=== PATIENT | female | born 1995 | race Caucasian/White ===

== ENCOUNTER → 2019-05-29 | Outpatient (CLI) | payer BC ==
--- NOTE | 2019-05-29 15:07 | FL ---
EXAMINATION TYPE: FL hysterosalpingography DATE OF EXAM: 05/29/2019 HISTORY: Infertility. Last menstrual period began 05/21/2019 TECHNIQUE/FINDINGS: Patient was brought to the fluoroscopic suite in outpatient radiology. The exami nation was explained in detail to the patient. Preprocedural timeout was performed. 35 seconds of flu oroscopy was utilized with 7 fluoroscopic images saved. Patient was draped in typical sterile technique. The patient was consented occasions with Betadine. A 5-Japanese catheter was inserted into the cervix and approximately 1.5 cc of air was insufflated into the balloon. A speculum was then removed and under fluoroscopic guidance 12 cc of Isovue-370 contras t was inserted into the catheter within the uterine cavity. After the administration of 12 cc of Isovue-370 into the uterus, spill of contrast was seen from the Fallopian tubes into the pelvis bilaterally. Patient is noted to have a prior left oophorectomy martinez gregg. The uterus demonstrates a normal shape and contour other than linear defect near the left is min us likely from prior surgical intervention. Linear defect in the fundus does resolve after instillati on of contrast and is likely attributable to the catheter and adjacent area as another small air bubb le is seen. Myometrial scarring is another possibility. Uterus appears anteverted. IMPRESSION: 1. Patency of the bilateral fallopian tubes despite the known left oophorectomy. 2. Linear defect in the myometrium appears to resolve on later images and is likely artifactual relat ed to instillation of air, however linear small fundal myometrial scar is an alternate possibility.
== END | disposition home or self-care (01) ==
LOC: RADUSWWP 13:11
PROVIDERS: ATTEND Obstetrics & Gynecology
DX: N80.9 Endometriosis, unspecified (principal); N97.9 Female infertility, unspecified; Z90.721 Acquired absence of ovaries, unilateral
CPT/HCPCS: 58340; 74740; Q9967

== ENCOUNTER 2019-06-22 12:52 | Emergency (ER) | payer BC, OTHER ==
[2019-06-22 13:01] VITALS: BP 119/76; PULSE 78; RESP 18; TEMP 97.8
--- NOTE | 2019-06-22 13:38 | ED ---
General Adult HPI - General Chief complaint: Animal Bite Stated complaint: [facility]-cat bite Time Seen by Provider: 06/22/19 13:01 Source: patient, RN notes reviewed Mode of arrival: ambulatory Limitations: no limitations - History of Present Illness Initial comments: 24-year-old female without any significant past medical history presents to the emergency department for a chief complaint of cat bite. Patient was bitten by a cat in the right thumb yesterday around 4:00 PM. States that she noticed some streaking up her arm. Patient is currently on Augmentin from a dog bite less than 10 days ago. Patient denies fevers or chills. Denies nausea or vomiting. States tetanus is up-to-date.Patient has no other complaints at this time including shortness of breath, chest pain, abdominal pain, nausea or vomiting, headache, or visual changes. - Related Data Home Medications Medication Instructions Recorded Confirmed Amoxic-Pot Clav 500-125 mg 1 tab PO TID 06/22/19 06/22/19 [Augmentin 500-125 mg] Ibuprofen 800 mg PO TID PRN 06/22/19 06/22/19 Previous Rx's Medication Instructions Recorded Amoxicillin/Potassium Clav 1 tab PO Q12HR #20 tab 06/22/19 [Augmentin 875-125 Tablet] Allergies Allergy/AdvReac Type Severity Reaction Status Date / Time No Known Allergies Allergy Verified 06/22/19 13:38 Review of Systems ROS Statement: Those systems with pertinent positive or pertinent negative responses have been documented in the HPI. ROS Other: All systems not noted in ROS Statement are negative. Past Medical History Past Medical History: No Reported History History of Any Multi-Drug Resistant Organisms: None Reported Additional Past Surgical History / Comment(s): Lap Past Psychological History: No Psychological Hx Reported Smoking Status: Never smoker Past Alcohol Use History: Occasional Past Drug Use History: Marijuana General Exam Limitations: no limitations General appearance: alert, in no apparent distress Head exam: Present: atraumatic, normocephalic, normal inspection Eye exam: Present: normal appearance, PERRL, EOMI. Absent: scleral icterus, conjunctival injection, periorbital swelling ENT exam: Present: normal exam, mucous membranes moist Neck exam: Present: normal inspection, full ROM. Absent: tenderness, meningismus, lymphadenopathy Respiratory exam: Present: normal lung sounds bilaterally. Absent: respiratory distress, wheezes, rales, rhonchi, stridor Cardiovascular Exam: Present: regular rate, normal rhythm, normal heart sounds. Absent: systolic murmur, diastolic murmur, rubs, gallop, clicks Extremities exam: Present: full ROM (Full range motion of all digits in the right hand including the right thumb), normal capillary refill (Biliary refill less than 2 seconds, radial pulse 2+ and right upper extremity.), other (She has some mild erythema noted over the thenar eminence. This is erythematous without purulent drainage or palpable abscess. There is some light red streaking up to about the mid forearm). Absent: tenderness (No significant tenderness noted), pedal edema, joint swelling, calf tenderness Course Vital Signs 06/22/19 12:59 Temperature 97.8 F Pulse Rate 78 Respiratory 18 Rate Blood Pressure 119/76 O2 Sat by Pulse 99 Oximetry Medical Decision Making - Medical Decision Making HPI as documented physical exam reveals some erythema along the bite padreep of the thenar eminence. This was cleaned out thoroughly. There is also some mild erythema streaking up to about the mid distal forearm with lymphangitis. X-ray was obtained to rule out foreign body which shows a normal three-view. Discussed case with Dr. Antonio. At this time he feels patient should continue Augmentin and continue to monitor. Erythema was marked off with a pen. Recommended that if there is a few H increase past this pardeep or if she has fevers to return to the emergency department for IV antibiotics. Discussed strict return parameters. Patient does agree with this. Cat was not immunized for rabies but can be monitored for 10 days as CDC recommends this over rabies vaccinations. patient is agreeable to this. Animal control will be contacted through our animal bite form as well as patient's work. Disposition Clinical Impression: Cat bite Disposition: HOME SELF-CARE Condition: Good Instructions (If sedation given, give patient instructions): Animal Bite (ED) Additional Instructions: Please take Augmentin as directed. Please monitor for redness extending past black line and return immediately if this occurs for IV antibiotics. Return if you have any other worsening symptoms such as fevers. Otherwise follow-up with primary care in 1-2 days. Prescriptions: Amoxicillin/Potassium Clav [Augmentin 875-125 Tablet] 1 tab PO Q12HR #20 tab Is patient prescribed a controlled substance at d/c from ED?: No Referrals: Felicitas Mclean MD [REFERRING] - 1-2 days Time of Disposition: 13:57
--- NOTE | 2019-06-22 13:53 | XR ---
EXAMINATION TYPE: XR hand complete RT DATE OF EXAM: 06/22/2019 COMPARISON: None HISTORY: Cat bite, possible foreign body TECHNIQUE: 3 view right hand FINDINGS: No acute fractures or dislocations are evident. No radiopaque foreign bodies are evident. S oft tissues appear normal. Tip of the middle finger is collimated out of the field of view on the lat eral projection but appears unremarkable on additional views. IMPRESSION: 1. Normal 3 view right hand.
== END 2019-06-22 14:35 | disposition home or self-care (01) ==
LOC: EC 12:52
DX: S61.051A Open bite of right thumb without damage to nail, initial encounter (principal); W55.01XA Bitten by cat, initial encounter
CPT/HCPCS: 99283

== ENCOUNTER 2020-02-16 09:09 | Inpatient (IN) | payer BC, OTHER ==
[2020-02-16] MEDS ORDERED: METHYLERGONOVINE 0.2 MG/ML 1 ML AMP IM PRN (10:14)
[2020-02-16] MEDS ORDERED: OXYTOCIN 10 UNIT/ML 1 ML VIAL IM PRN (10:14)
[2020-02-16] MEDS ORDERED: TERBUTALINE 1 MG/ML VIAL SQ PRN (10:14)
[2020-02-16] MEDS ORDERED: AMPICILLIN 2,000 MG in SODIUM CHLORIDE 0.9% 100 ML IVPB STA (10:14)
[2020-02-16] MEDS ORDERED: CARBOPROST TROMETHAMINE 250 MCG/ML 1 ML AMP IM PRN (10:14)
[2020-02-16] MEDS ORDERED: LIDOCAINE 0.5% (PF) 5 MG/ML (50 ML SDV) SQ PRN (10:14)
[2020-02-16] MEDS ORDERED: LACTATED RINGERS 1,000 ML IV SCH (10:15)
--- NOTE | 2020-02-16 10:18 | US ---
EXAMINATION TYPE: US OB >= 14 wk fetus DATE OF EXAM: 02/16/2020 COMPARISON: None CLINICAL HISTORY: vaginal bleeding TECHNIQUE: GESTATIONAL AGE / DATING Physician Established: (35 weeks/0 days) EDC: 03/22/20 Dates by LMP: unknown Dates by First Scan: not available Dates by Current Scan: ( 35 weeks/0 days) EDC: 03/22/20 Beta HCG (if available): Not available at this time SURVEY IUP: Single PLACENTA: Anterior PREVIA: No Previa MYRNA: cm CERVICAL LENGTH (transabdominal: norm > 3.0cm):not measured per NENA Cunningham BIOMETRY PRESENTATION: vertex BPD: 8.6 cm 34 weeks / 4 days HC: 11.2 cm 35 weeks / 2 days AC: 11.5 cm 35 weeks / 3 days FL: 6.6 cm 34 weeks / 2 days ESTIMATED WEIGHT IN GRAMS: 2555 grams ESTIMATED WEIGHT IN LBS/OZ: 5 lbs. 10 oz. WEIGHT PERCENTAGE BASED ON ESTABLISHED DATES: 78% HC/AC: 1.0 FL/AC: 21 HEART RATE: bpm RHYTHM: 130 IMPRESSION: Single viable intrauterine
--- NOTE | 2020-02-16 10:25 | P.HPOB ---
History of Present Illness H&P Date: 02/16/20 Chief Complaint: Contractions, bleeding This is a 24-year-old female 2 para 0 with an estimated date of confinement of 03/22/2020, estimated gestational age of 35-0/7 weeks, who presents to labor and delivery with complaints of abdominal pain and some bleeding that began this morning. She has been feeling cramping and pain since Wednesday but became more regular last night. Her course had been uncomplicated up until now. She did have some skin issues and was seen by dermatology that gave her a cream for tinea versicolor. Ultrasound performed in triage did show an estimated weight of 5 lbs. 10 oz. and vertex presentation. labs: GC/chlamydia/Trichomonas-negative Hepatitis B surface antigen-negative RPR-nonreactive Rubella-immune Blood type-A+ Antibody screen-negative Hemoglobin-11.3 Toxoplasma screen-negative Random glucose-78 1 hour Glucola-98 Anatomy scan-normal anatomy Obstetrical history: . History of 1 miscarriage. Gynecologic history: No history of sexual transmitted diseases Social history: She is single. She works at a veterinary clinic. Review of Systems Constitutional: Denies chills, Denies fever Eyes: denies blurred vision, denies pain Ears, nose, mouth and throat: Denies headache, Denies sore throat Cardiovascular: Denies chest pain, Denies shortness of breath Respiratory: Denies cough Gastrointestinal: Reports abdominal pain Genitourinary: Reports pelvic pain, Reports Musculoskeletal: Reports low back pain Neurological: Denies numbness, Denies weakness Psychiatric: Denies anxiety, Denies depression Past Medical History Additional Past Medical History / Comment(s): Endometriosis History of Any Multi-Drug Resistant Organisms: None Reported Additional Past Surgical History / Comment(s): Laparoscopy with left oophorectomy, left ureteral lysis, ablation of peritoneal lesions and endometriosis with incidental uterine perforation-03/29/2019 Past Psychological History: No Psychological Hx Reported Smoking Status: Never smoker Past Alcohol Use History: None Reported Past Drug Use History: Marijuana (Quit with ) - Past Family History Father Family Medical History: Hypertension Medications and Allergies Home Medications Medication Instructions Recorded Confirmed Type Ciclopirox Olamine [Ciclopirox 1 applic TOPICAL 02/16/20 History 0.77% Topical Susp.] Ferrous Sulfate [Iron] 325 mg PO DAILY 02/16/20 02/16/20 History Pnv No.95/Ferrous Fum/Folic AC 1 each PO DAILY 02/16/20 02/16/20 History [ Multivitamin Tablet] Allergies Allergy/AdvReac Type Severity Reaction Status Date / Time No Known Allergies Allergy Verified 06/22/19 13:38 Exam Osteopathic Statement: *. No significant issues noted on an osteopathic structural exam other than those noted in the History and Physical/Consult. Vital Signs Temp Pulse Resp BP 02/16/20 09:37 97.8 F 68 16 138/70 Intake and Output 02/15/20 02/16/20 02/16/20 22:59 06:59 14:59 Other: Weight 79.379 kg HEENT: Within normal limits Heart: Regular rate and rhythm Lungs: Clear to auscultation bilaterally Abdomen: Cervix: 8-9 cm with bulging bag/100% effaced/-1 station heart tones: Reactive Contractions: Every 3 minutes Extremities: Negative Homans Assessment and Plan (1) 35 weeks gestation of Current Visit: Yes Status: Acute Code(s): Z3A.35 - 35 WEEKS GESTATION OF SNOMED Code(s): 88391504 (2) labor in third trimester with delivery Current Visit: Yes Status: Acute Code(s): O60.14X0 - LABOR THIRD TRI W DELIVERY THIRD TRI, UNSP SNOMED Code(s): 62169812317985273 Plan: Admission for eminent labor. Antibiotic prophylaxis secondary to unknown group B streptococcus. Patient is advised that baby will need to go to level I nursery after delivery for observation due to immaturity.
[2020-02-16 10:33] LABS: Basophils % (A) 0 %; Eosinophils # (A) 0.3 k/uL (0-0.7); Eosinophils % (A) 2 %; HCT 34.6 % (34.0-46.0); HGB 11.2 gm/dL (11.4-16.0); Lymphocytes # (A) 2.2 k/uL (1.0-4.8); Lymphocytes % (A) 15 %; MCH 30.9 pg (25.0-35.0); MCHC 32.3 g/dL (31.0-37.0); MCV 95.9 fL (80.0-100.0); Mean Platelet Volume 7.2; Monocytes # (A) 0.6 k/uL (0-1.0); Monocytes % (A) 4 %; Neutrophils # (A) 11.6 k/uL (1.3-7.7); Neutrophils % (A) 78 %; Platelet Count 329 k/uL (150-450); RBC 3.61 m/uL (3.80-5.40); RDW 13.8 % (11.5-15.5); WBC 14.9 k/uL (3.8-10.6)
[2020-02-16] MEDS ORDERED: IBUPROFEN 600 MG TAB PO PRN (11:14)
[2020-02-16] MEDS ORDERED: OXYTOCIN 20 UNITS/1000 ML NS 1,000 ML IV SCH (11:14)
[2020-02-16] MEDS ORDERED: ACETAMINOPHEN TAB 325 MG TAB PO PRN (11:14)
[2020-02-16] MEDS ORDERED: WITCH HAZEL 1 EACH MED..PAD TOPICAL PRN (11:14)
[2020-02-16] MEDS ORDERED: diphenhydrAMINE 50 MG CAP PO PRN (11:14)
[2020-02-16] MEDS ORDERED: SIMETHICONE 80 MG CHEWABLE PO PRN (11:14)
[2020-02-16] MEDS ORDERED: ZOLPIDEM 5 MG TAB PO PRN (11:14)
[2020-02-16] MEDS ORDERED: LANOLIN CREAM 5 GM TUBE TOPICAL PRN (11:14)
[2020-02-16] MEDS ORDERED: HYDROCORTISONE 2.5% RECTAL CREAM 30 GM TUBE RECTAL PRN (11:14)
[2020-02-16] MEDS ORDERED: diphenhydrAMINE 50 MG/ML 1 ML VIAL IVP PRN ×2 (11:14)
[2020-02-16] MEDS ORDERED: BENZOCAINE/MENTHOL SPRAY 1 GM/SPRAY AEROSOL TOPICAL PRN (11:14)
[2020-02-16] MEDS ORDERED: diphenhydrAMINE 25 MG CAP PO PRN (11:14)
--- NOTE | 2020-02-16 13:17 | P.PROBDLV ---
Vaginal Delivery Note - . Vaginal Delivery Note: The patient progressed to complete dilation after artificial rupture membranes with clear fluid noted. She pushed for a few pushes and then infant's head came to a crown and then delivered across the perineum followed by the remainder of the body. Infant was placed on mother's abdomen and nose and mouth were bulb suctioned. Cord was clamped and cut and was taken to warmer for evaluation by nursing staff. A viable female was noted with scores of 8 at 1 minute and 9 at 5 minutes and infant weight of 4 lbs. 15 oz. Placenta delivered shortly thereafter, intact, with a three-vessel cord. Uterus contracted well after oxytocin was given and uterine massage was carried out. Inspection of the perineum revealed mild bilateral periurethral abrasions but no active bleeding noted. Estimated blood loss is approximately 100 mL's. Mother is in stable condition. is in stable condition but being transported to level I nursery due to prematurity.
--- NOTE | 2020-02-16 13:18 | P.MSEPDOC ---
Presenting Problems - Arrival Data Date of Arrival on Unit: 02/16/20 Time of Arrival on Unit: 10:06 Mode of Transport: Portable - Complaint OB-Reason for Admission/Chief Complaint: Vaginal Bleeding, Other Comment: lower abd pain Medical History - Information : 2 Para: 0 Term: 0 : 0 Abortions: Spontaneous or Elective: 0 Number of Living Children: 0 - Gestational Age Gestational Age by MARIA ESTHER (wks/days): 35 Weeks and 0 Days Review of Systems - Review of Systems Constitutional: No problems Breast: No problems ENT: No problems Cardiovascular: No problems Respiratory: No problems Gastrointestinal: No problems Genitourinary: No problems Musculoskeletal: No problems Neurological: No problems Skin: No problems Vital Signs - Temperature Temperature: 97.8 F Temperature Source: Temporal Artery Scan - Pulse Right Radial Pulse Rate: 68 Pulse Assessment Method: Automatic Cuff - Respirations Respiratory Rate: 16 Oxygen Delivery Method: Room Air - Blood Pressure Right Arm Blood Pressure: 138/70 Blood Pressure Mean: 92 Blood Pressure Source: Automatic Cuff Medical Screen Scoring (Pre) - Cervical Exam Dilation: 8-10 cm = 3 Effacement: More than 50% = 2 Membranes: Intact - Uterine Contractions Frequency: > 5 minutes apart = 1 - Maternal Vital Signs Maternal Temperature: N/A Maternal Blood Pressure: N/A Signs of Preeclampsia: N/A Maternal Respirations: N/A - Maternal Trauma Maternal Trauma: N/A - Assessment - Baby A Baseline FHR: 135 Heart Rate - NICHD Category: Category I (Normal) = 0 NST: Reactive Position: N/A Station: N/A - Total Score - Baby A Total Score - Baby A: 6 - Total Score - Baby B Total Score - Baby B: 6 - Total Score - Baby C Total Score - Baby C: 6 - Level of Risk - Baby A Level of Risk - Baby A: Medium (6-9) - Level of Risk - Baby B Level of Risk - Baby B: Medium (6-9) - Level of Risk - Baby C Level of Risk - Baby C: Medium (6-9) Physician Notification (Pre) - Physician Notified Physician Notified Date: 02/16/20 Physician Notified Time: 09:30 New Order Received: Yes - Notification Comment Comment: u/s at bedside and assess in triage/ adm for ob delivery. 8-[address] hewitt. adm for ob delivery Disposition - Disposition OB Disposition: Admit I agree with the RN Medical Screening Exam: Yes Risk & Benefit of care provided described in d/c instruction: Yes Diagnosis: LABOR THIRD TRI W DELIVERY THIRD TRI, UNSP
[2020-02-16] MEDS ORDERED: AMPICILLIN 1,000 MG in SODIUM CHLORIDE 0.9% 50 ML IVPB SCH (14:14)
[2020-02-16] MEDS: SENNOSIDES-DOCUSATE SODIUM 1 EACH TAB PO SCH (19:58)
[2020-02-17 06:01] LABS: Basophils % (A) 0 %; Eosinophils # (A) 0.1 k/uL (0-0.7); Eosinophils % (A) 1 %; HCT 34.4 % (34.0-46.0); HGB 11.1 gm/dL (11.4-16.0); Lymphocytes # (A) 2.7 k/uL (1.0-4.8); Lymphocytes % (A) 19 %; MCH 31.3 pg (25.0-35.0); MCHC 32.2 g/dL (31.0-37.0); MCV 97.3 fL (80.0-100.0); Mean Platelet Volume 7.8; Monocytes # (A) 0.7 k/uL (0-1.0); Monocytes % (A) 5 %; Neutrophils # (A) 10.6 k/uL (1.3-7.7); Neutrophils % (A) 74 %; Platelet Count 280 k/uL (150-450); RBC 3.54 m/uL (3.80-5.40); RDW 13.9 % (11.5-15.5); WBC 14.3 k/uL (3.8-10.6)
[2020-02-17] MEDS: SENNOSIDES-DOCUSATE SODIUM 1 EACH TAB PO SCH ×2 (07:45→19:34)
--- NOTE | 2020-02-17 11:40 | P.PNOBGVD ---
Subjective - Subjective Principal diagnosis: Status post vaginal delivery day #1 Interval history: Patient is doing okay. Lochia is decreasing. Pain is well-controlled. She is pumping her breast milk. Baby is still in level I nursery. Patient reports: Reports appetite normal, Reports voiding normally, Reports pain well controlled, Reports ambulating normally [place]: other (In level I nursery) Objective - Latest Vital Signs Latest vital signs: Vital Signs Temp Pulse Resp BP Pulse Ox 02/17/20 08:00 98.2 F 70 16 111/70 02/17/20 00:00 98.4 F 70 16 117/68 02/16/20 20:00 98.6 F 73 18 118/78 97 02/16/20 16:00 98.5 F 70 16 113/67 02/16/20 13:18 97.8 F 68 16 138/70 02/16/20 12:45 80 16 107/59 02/16/20 12:15 97.4 F L 75 16 112/61 02/16/20 11:50 75 16 118/75 Intake and Output 02/16/20 02/17/20 02/17/20 22:59 06:59 14:59 Other: # Voids 1 2 1 - Exam Extremities: Present: normal. Absent: tenderness, edema Abdomen: Present: normal appearance, soft. Absent: distention, tenderness Uterus: Present: normal, firm. Absent: tenderness - Labs Labs: Abnormal Lab Results - Last 24 Hours (Table) 02/17/20 Range/Units 05:50 WBC 14.3 H (3.8-10.6) k/uL RBC 3.54 L (3.80-5.40) m/uL Hgb 11.1 L (11.4-16.0) gm/dL Neutrophils # 10.6 H (1.3-7.7) k/uL Assessment and Plan Assessment: Status post vaginal delivery day #1 (1) 35 weeks gestation of Current Visit: Yes Status: Acute Code(s): Z3A.35 - 35 WEEKS GESTATION OF SNOMED Code(s): 68272328 (2) labor in third trimester with delivery Current Visit: Yes Status: Acute Code(s): O60.14X0 - LABOR THIRD TRI W DELIVERY THIRD TRI, UNSP SNOMED Code(s): 88576323222258511 Plan: Continue with care today. Anticipate discharge home tomorrow.
[2020-02-18 08:50] VITALS: RESP 16
[2020-02-18] MEDS: SENNOSIDES-DOCUSATE SODIUM 1 EACH TAB PO SCH (10:51)
--- NOTE | 2020-02-18 11:01 | P.DS ---
Providers Date of admission: 02/16/20 10:03 Expected date of discharge: 02/18/20 Attending physician: Ewa Vaz Primary care physician: Stated None - Discharge Diagnosis(es) (1) 35 weeks gestation of Current Visit: Yes Status: Acute (2) labor in third trimester with delivery Current Visit: Yes Status: Acute Hospital Course: This is a 24-year-old female 2 para 0 at 35-0/7 weeks who presented with active labor. She delivered vaginally a viable female infant with scores of 8 at 1 minute and 9 at 5 minutes and infant weight of 4 lbs. 15 oz. on 02/16/2020. Her course has been essentially uncomplicated. Lochia is decreasing. Her pain is well-controlled with no pain medication. She is pumping breast milk. Her baby is in level I nursery due to prematurity. Vital signs are stable. Abdomen is soft with fundus firm and nontender. Extremities show negative Homans. Impression is status post vaginal delivery day #2. Plan is to discharge home later today. Routine instructions are given. She has been given a prescription for a breast pump. She declines a need for any pain medication. She is advised to follow up in the office in 6 weeks for a check. She is advised to call the office if she has any further questions or concerns prior to her appointment time. Procedures: Spontaneous vaginal delivery of a viable female infant on 02/16/2020 Patient Condition at Discharge: Stable Plan - Discharge Summary New Discharge Prescriptions: No Action Pnv No.95/Ferrous Fum/Folic AC [ Multivitamin Tablet] 1 each PO DAILY Ferrous Sulfate [Iron] 325 mg PO DAILY Ciclopirox Olamine [Ciclopirox 0.77% Topical Susp.] 1 applic TOPICAL Discharge Medication List Ciclopirox Olamine [Ciclopirox 0.77% Topical Susp.] 1 applic TOPICAL 02/16/20 [History] Ferrous Sulfate [Iron] 325 mg PO DAILY 02/16/20 [History] Pnv No.95/Ferrous Fum/Folic AC [ Multivitamin Tablet] 1 each PO DAILY 02/16/20 [History] Follow up Appointment(s)/Referral(s): Ewa Vaz DO [Doctor of Osteopathic Medicine] - 1 Week Activity/Diet/Wound Care/Special Instructions: Instructions 1. Do not begin any exercise program for 3 weeks. 2. Do not resume sexual relations for 3 weeks or longer if uncomfortable. 3. You may take tub baths or showers at any time. 4. You may use tampons if desired after 3 weeks. 5. Keep the area of episiotomy (stitches) clean and dry. 6. If you are not nursing, wear a good fitting, supportive bra during the day and limit fluid intake for at least 1 week to prevent breast engorgement. 7. Call the office, [phone], within the next week to make appointment for your 6 week checkup if it has not already been made. 8. Report any of the following occurrences to the doctor promptly: a. Heavy, excessive bleeding b. Chills, fever c. Burning or frequency of urination d. Pain or redness and breasts if nursing e. Increasing pain or swelling in episiotomy (stitches). In addition to the above instructions, the following additional should be followed: 1. No heavy lifting or straining (exercising) until after 6 week checkup. 2. Keep abdominal incision clean and dry: You may wear a dressing if more comfortable. 3. Make office appointment for 10 days after going home or as instructed by her doctor. Discharge Disposition: HOME SELF-CARE
[2020-02-18 15:48] VITALS: BP 115/70; PULSE 89; TEMP 98.7
== END 2020-02-18 18:10 | disposition home or self-care (01) | DRG 807 ==
LOC: FBPOP 09:09 → 4FBP 10:03
PROVIDERS: ADMIT Obstetrics & Gynecology; ATTEND Obstetrics & Gynecology
PROC: 10E0XZZ Delivery of Products of Conception, External Approach (ICD-10-PCS; principal; 2020-02-16)
DX: O60.14X0 Preterm labor third trimester with preterm delivery third trimester, not applicable or unspecified (principal); Z37.0 Single live birth; B36.0 Pityriasis versicolor; O71.82 Other specified trauma to perineum and vulva; O99.72 Diseases of the skin and subcutaneous tissue complicating childbirth; Z3A.35 35 weeks gestation of pregnancy; Z87.42 Personal history of other diseases of the female genital tract; Z98.890 Other specified postprocedural states; Z90.721 Acquired absence of ovaries, unilateral; Z79.899 Other long term (current) drug therapy; Z82.49 Family history of ischemic heart disease and other diseases of the circulatory system
CPT/HCPCS: 59025; 76805; 85025; 86850; 86900; 86901; 88307; 99213

== ENCOUNTER 2020-08-02 06:13 | Day surgery (SDC) | payer BC, OTHER ==
[2020-07-31 10:48] VITALS: BMI 24.2
--- NOTE | 2020-08-01 20:44 | P.HPOB ---
History of Present Illness H&P Date: 08/01/20 Chief Complaint: CHIQUIS II This is a 25y.o. female, 2, para 1, who presents for colposcopy with loop electrocautery excision procedure for CHIQUIS II on colposcopy in the office. Her initial abnormal pap smear showed LGSIL on 02/13/2019. Her last pap smear on 04/12/2020 showed HGSIL. OB Hx: . History of 1 miscarriage and 1 vaginal delivery. Lead Cargoman Hx: History of abnormal pap smears. No other history of STDs. History of endometriosis. Social Hx: Single. Works at [email or web address] Review of Systems Constitutional: Denies chills, Denies fever Eyes: denies blurred vision, denies pain Ears, nose, mouth and throat: Denies headache, Denies sore throat Respiratory: Denies cough Gastrointestinal: Denies abdominal pain, Denies diarrhea, Denies nausea, Denies vomiting Genitourinary: Denies dysuria, Denies hematuria Musculoskeletal: Denies myalgias Integumentary: Reports color changes Neurological: Denies numbness, Denies weakness Psychiatric: Denies anxiety, Denies depression Past Medical History Additional Past Medical History / Comment(s): Endometriosis History of Any Multi-Drug Resistant Organisms: None Reported Additional Past Surgical History / Comment(s): Laparoscopy with left oophorectomy, left ureteral lysis of adhesions , ablation of peritoneal lesions and endometriosis with incidental uterine perforation-03/29/2019 Past Anesthesia/Blood Transfusion Reactions: No Reported Reaction, Motion Sickness Past Psychological History: No Psychological Hx Reported Smoking Status: Never smoker Past Alcohol Use History: Occasional Past Drug Use History: Marijuana (Occasional) - Past Family History Father Family Medical History: Hypertension Medications and Allergies Home Medications Medication Instructions Recorded Confirmed Type Pnv No.95/Ferrous Fum/Folic AC 1 each PO DAILY 02/16/20 07/31/20 History [ Multivitamin Tablet] Norgestimate-Ethinyl Estradiol 1 tab PO 1900 07/31/20 07/31/20 History [Sprintec 28 Day Tablet] Allergies Allergy/AdvReac Type Severity Reaction Status Date / Time No Known Allergies Allergy Verified 07/31/20 10:18 Exam Osteopathic Statement: *. No significant issues noted on an osteopathic structural exam other than those noted in the History and Physical/Consult. HEENT: within normal limits Heart: regular rate and rhythm Lungs: clear to auscultation bilaterally Abdomen: soft, non-tender Cervix: multiparous os Uterus: anteverted, non-tender with no adnexal masses or tenderness Extremities: Neg. Jeronimo's. Assessment and Plan (1) CHIQUIS II (cervical intraepithelial neoplasia II) Status: Acute Code(s): N87.1 - MODERATE CERVICAL DYSPLASIA SNOMED Code(s): 651067149 Plan: Proceed with colposcopy with loop electrocautery excision procedure. I have discussed the risks, benefits, and alternative therapies for the above- mentioned procedure and for both sedation/anesthesia as well as necessary blood products administration, if indicated, as they pertain to this patient. The patient has indicated her understanding and acceptance of the risks and procedures discussed.
[~2020-08-02 06:13] MED LIST: DEXAMETHASONE SOD PHOSPHATE 4 MG/ML 1 ML VIAL IV ONE; LACTATED RINGERS 1,000 ML IV SCH; LIDOCAINE 1% (10MG/ML) FOR IV START INTRADERMA PRN; Pre Op ABX Message 1 EACH MISC MISCELLANE ONE
[2020-08-02 06:51] VITALS: RESP 16
[2020-08-02] MEDS ORDERED: fentaNYL (PF) 50 MCG/ML 2 ML AMP ONE (07:32)
[2020-08-02] MEDS ORDERED: KETOROLAC 15 MG/ML 1 ML VIAL ONE (07:32)
[2020-08-02] MEDS ORDERED: MIDAZOLAM 2 MG/2 ML VIAL ONE (07:32)
[2020-08-02] MEDS ORDERED: LIDOCAINE 1% INJ 10MG/ML (20 ML MDV) ONE (07:32)
[2020-08-02] MEDS ORDERED: PROPOFOL 10 MG/ML 20 ML VIAL IV ONE (07:32)
[2020-08-02] MEDS ORDERED: BUPIVACAINE (PF) 0.5% 30 ML VIAL SQ ONE ×2 (07:57)
[2020-08-02] MEDS ORDERED: FERRIC SUBSULFATE (MONSELS) JAR TOPICAL ONE (07:57)
[2020-08-02] MEDS ORDERED: LIDOCAINE 1%-EPI 1:100,000 20 ML VIAL SUBMUCOSAL ONE ×2 (07:57)
[2020-08-02] MEDS ORDERED: ACETIC ACID 15 DROPS/ML DROPS MISCELLANE ONE (07:58)
--- NOTE | 2020-08-02 08:14 | P.OP ---
Date of Procedure: 08/02/20 Preoperative Diagnosis: CHIQUIS-2 Postoperative Diagnosis: Same Procedure(s) Performed: Colposcopy with loop electrocautery excision procedure Anesthesia: other (Mask general) Surgeon: Ewa Vaz Estimated Blood Loss (ml): 10 Pathology: other (Ectocervix with 12 o'clock position marked with a suture) Condition: stable Disposition: same day Indications for Procedure: This is a 25y.o. female, 2, para 1, who presents for colposcopy with loop electrocautery excision procedure for CHIQUIS II on colposcopy in the office. Her initial abnormal pap smear showed LGSIL on 02/13/2019. Her last pap smear on 04/12/2020 showed HGSIL. Operative Findings: Transition zone is entirely visualized. No specific abnormalities are noted with acetic acid or Lugol solution. Description of Procedure: The patient is taken to the operating room where she is placed in the dorsal lithotomy position. She is prepped and draped in the normal sterile fashion. Her bladder is drained with a catheter and then removed. Examination is performed under anesthesia. Uterus is found to be mid position with no adnexal masses palpated. A coated bivalve speculum was placed in the patient's vagina and the cervix was visualized. The cervix is swabbed with 5% acetic acid solution. No abnormalities were visualized. The cervix was then swabbed with Lugol solution and no further abnormalities are visualized. The transition zone is seen entirely. Cervix was circumferentially injected with a 50-50 mixture of 1% lidocaine with epinephrine and half percent Marcaine. Approximately 5 mL were used. Next the large loop was used with 35 W of cutting power to swipe from left to right to remove the entire transition zone. Next a ball-tipped cautery was used to cauterize the bed left behind. Monsel solution was applied for hemostasis. The specimen was labeled at the 12 o'clock position with a suture. All instruments are removed from the vagina. All sponge and needle counts are correct. The patient is then taken to recovery room in stable condition.
[2020-08-02 08:26] VITALS: TEMP 97.6
[2020-08-02] MEDS ORDERED: ONDANSETRON 4 MG/2 ML VIAL ONE (08:52)
[2020-08-02] MEDS ORDERED: ONDANSETRON 4 MG/2 ML VIAL IVP ONE (08:59)
[2020-08-02 09:15] VITALS: BP 118/79; PULSE 67
== END 2020-08-02 09:30 | disposition home or self-care (01) ==
LOC: OR 06:13
PROVIDERS: ATTEND Obstetrics & Gynecology
DX: N87.1 Moderate cervical dysplasia (principal); N80.9 Endometriosis, unspecified; Z90.721 Acquired absence of ovaries, unilateral; Z98.890 Other specified postprocedural states; Z79.3 Long term (current) use of hormonal contraceptives
CPT/HCPCS: 81025; 88307; 57461; J2250; J1100; J2405; J2001; J3010; J1885; J2704

== ENCOUNTER → 2021-10-16 | Outpatient (CLI) | payer OTHER ==
--- NOTE | 2021-10-16 11:20 | XR ---
EXAMINATION TYPE: XR knee limited LT DATE OF EXAM: 10/16/2021 COMPARISON: None available INDICATION: Questionable bursitis, fall 5 years ago. Swelling on and off. Fell on ice Wednesday. TECHNIQUE: Left knee X-ray 2 views. FINDINGS: Subtle linear lucency is seen superimposed on the medial tibial condyle which could represent an roxane fact however a subtle nondisplaced fracture at that location cannot be excluded, please correlate cli nically. Further CT assessment can be considered. No other definite acute fracture line identified. No significant bony degenerative changes of the kne e joint. No sizable joint effusion. IMPRESSION: Artifact versus nondisplaced fracture of the medial tibial condyle as described above, for clinical c orrelation. Further CT assessment can be considered if clinically required.
== END | disposition home or self-care (01) ==
LOC: RADXRMAIN 09:45
PROVIDERS: ATTEND Internal Medicine
DX: M25.562 Pain in left knee (principal)

== ENCOUNTER → 2021-11-19 | Outpatient (CLI) | payer OTHER ==
--- NOTE | 2021-11-20 05:36 | MR ---
EXAMINATION TYPE: MR knee LT wo con DATE OF EXAM: 11/19/2021 COMPARISON: None HISTORY: NO prior MR, prior xray on synpase, left knee pain, fall on ice 2 months ago, pain and swell ing since injury Multiplanar multiecho imaging of the left knee without contrast. There is 2 cm area of increased fluid signal at the base of the tibial spines. The anterior and poste rior cruciate ligaments appear intact. There is also a 5 mm cyst at the base of the tibial spines. Th e collateral ligaments are intact. The medial and lateral menisci appear fairly normal. No evidence of any significant tear. Distal femu r is intact. There is small knee joint effusion. The patella is intact. IMPRESSION: No evidence of meniscus or ligament tear. There is moderate-sized area of abnormal signal at the base of the tibial spines in the proximal tibia consistent with a bone bruise and possible nondisplaced f racture of the base of the tibial spine at the attachment of the anterior cruciate ligament. Small joint effusion.
== END | disposition home or self-care (01) ==
LOC: RADMRIMAIN 11:02
PROVIDERS: ATTEND Orthopaedic Surgery
DX: M25.462 Effusion, left knee (principal)

== ENCOUNTER 2023-08-11 05:54 | Day surgery (SDC) | payer OTHER ==
[2023-08-06 15:50] VITALS: BMI 25.8
[~2023-08-11 05:54] MED LIST changes: -DEXAMETHASONE SOD PHOSPHATE 4 MG/ML 1 ML VIAL IV ONE; -LIDOCAINE 1% (10MG/ML) FOR IV START INTRADERMA PRN; -Pre Op ABX Message 1 EACH MISC MISCELLANE ONE
[2023-08-11 06:48] VITALS: TEMP 98.2
[2023-08-11] MEDS ORDERED: MIDAZOLAM 2 MG/2 ML VIAL ONE (07:00)
[2023-08-11] MEDS ORDERED: PROPOFOL 10 MG/ML 20 ML VIAL IV ONE (07:00)
[2023-08-11] MEDS ORDERED: LIDOCAINE 1% INJ 10MG/ML (20 ML MDV) ONE (07:00)
--- NOTE | 2023-08-11 07:26 | P.PCN ---
Date of Procedure: 08/11/23 Procedure(s) Performed: Brief history: Patient is a pleasant 78-year-old white female scheduled for an elective upper endoscopy as well as colonoscopy as a part of evaluation of abdominal pain, intermittent nausea vomiting and chronic diarrhea for the last several years duration Procedure performed: Esophagogastroduodenoscopy with biopsy Colonoscopy with biopsy Preoperative diagnosis: Abdominal pain, nausea vomiting Chronic diarrhea [place] [facility] [place]: After informed consent was obtained from the patient was brought into the endoscopy unit and IV sedation was administered by anesthesia under continuous monitoring. Initially upper endoscopy was done. The Olympus GF 160 video endoscope was inserted inserted into the mouth and esophagus intubated without any difficulty and was gradually advanced into the stomach and duodenum and carefully examined. The bulb and second part of the duodenum appeared normal. Biopsies were done from the duodenum to rule out celiac disease. The scope was then withdrawn into the stomach adequately insufflated with air and upon careful examination the antrum had mild antral gastritis and biopsies were done from this area. Mucosa of the body, cardia and fundus appeared normal. The scope was then withdrawn into the esophagus. The GE junction was located at 40 cm to the incisors. It appeared regular with circumferential erythema consistent with LA grade a reflux esophagitis. Rest of the esophagus appeared normal. Patient tolerated the procedure well. At this time the patient continued to remain sedation. Initial digital rectal examination was normal. Olympus CF 160 video colonoscope was then inserted into the rectum and gradually advanced to the cecum without any difficulty. Careful examination was performed as the scope was gradually being withdrawn. The prep was excellent. Terminal ileum was intubated and 20 cm visualized and appeared normal. The cecum, ascending colon, transverse colon, descending colon, sigmoid colon and rectum appeared normal. Biopsies were done from the ascending and descending colon to rule out microscopic/collagenous colitis. Retroflexion was performed in the rectum and no lesions were noted. Patient tolerated the procedure well. Impression: 1. Upper endoscopy revealed mild antral gastritis and LA grade A reflux esophagitis 2. Colonoscopy was within normal limits with no evidence of colitis or colorectal neoplasia Recommendations: Findings of this examination were discussed with the patient as well as a family. She was advised to follow with the biopsy results. She'll be seen in office in 3-4 weeks.
[2023-08-11] MEDS ORDERED: ONDANSETRON 4 MG/2 ML VIAL ONE (07:31)
[2023-08-11] MEDS ORDERED: ONDANSETRON 4 MG/2 ML VIAL IVP ONE (07:44)
[2023-08-11 08:04] VITALS: BP 106/73; PULSE 86; RESP 20
== END 2023-08-11 08:33 ==
LOC: ORWHC2ENDO 05:54
PROVIDERS: ATTEND Internal Medicine Gastroenterology
DX: K29.50 Unspecified chronic gastritis without bleeding (principal); K52.9 Noninfective gastroenteritis and colitis, unspecified; D72.820 Lymphocytosis (symptomatic); K21.00 Gastro-esophageal reflux disease with esophagitis, without bleeding; F12.90 Cannabis use, unspecified, uncomplicated; F17.200 Nicotine dependence, unspecified, uncomplicated; Z79.899 Other long term (current) drug therapy
CPT/HCPCS: 81025; 88305; 45380; 43239; J2250; J2405; J2001; J2704

== ENCOUNTER 2023-08-22 09:04 | Emergency (ER) | payer OTHER ==
[2023-08-22 09:07] VITALS: TEMP 98.4
[2023-08-22] MEDS ORDERED: KETOROLAC 15 MG/ML 1 ML VIAL IVP STA (09:22)
[2023-08-22] MEDS ORDERED: SODIUM CHLORIDE 0.9% 1,000 ML IV STA (09:22)
[2023-08-22] MEDS ORDERED: ONDANSETRON 4 MG/2 ML VIAL IVP STA (09:22)
--- NOTE | 2023-08-22 09:40 | ED ---
Nausea/Vomiting/Diarrhea HPI - General Chief complaint: Nausea/Vomiting/Diarrhea Stated complaint: Vomiting; back pain Time Seen by Provider: 08/22/23 09:10 Source: patient, RN notes reviewed Mode of arrival: ambulatory Limitations: no limitations - History of Present Illness Initial comments: This is a 28-year-old female who presents to the emergency department for abdominal pain, back pain, nausea, and vomiting. States that last night she started to develop lower abdominal pain with some radiation into the right side of the back. She then started to develop nausea and vomiting and has since been unable to keep anything down. Reports only vomiting bile at this point. She has a history of endometriosis, and thought that this is what was causing her symptoms, however she states that it is not typically this severe and she does not get back pain with this. MD complaint: nausea, vomiting, abdominal pain - Related Data Home Medications Medication Instructions Recorded Confirmed norgestimate-ethinyl estradioL 1 tab PO 1900 07/31/20 08/06/23 [Sprintec 28 Day Tablet] Previous Rx's Medication Instructions Recorded Ketorolac [Toradol] 10 mg PO Q6HR PRN #15 tab 08/22/23 Ondansetron Odt [Zofran Odt] 4 mg PO Q8HR PRN #20 tab 08/22/23 Allergies Allergy/AdvReac Type Severity Reaction Status Date / Time No Known Allergies Allergy Verified 08/22/23 09:07 Review of Systems ROS Statement: Those systems with pertinent positive or pertinent negative responses have been documented in the HPI. ROS Other: All systems not noted in ROS Statement are negative. Past Medical History Past Medical History: No Reported History Additional Past Medical History / Comment(s): Endometriosis History of Any Multi-Drug Resistant Organisms: None Reported Additional Past Surgical History / Comment(s): Laparoscopy with left oophorectomy, left ureteral lysis of adhesions , ablation of peritoneal lesions and endometriosis with incidental uterine perforation-03/29/2019 Past Anesthesia/Blood Transfusion Reactions: No Reported Reaction, Motion Sickness Additional Past Anesthesia/Blood Transfusion Reaction / Comment(s): no blood transfusion Past Psychological History: No Psychological Hx Reported Smoking Status: Vaper Past Alcohol Use History: None Reported Past Drug Use History: Marijuana - Past Family History Father Family Medical History: Hypertension General Exam Limitations: no limitations General appearance: alert, in no apparent distress Head exam: Present: atraumatic, normocephalic, normal inspection Respiratory exam: Present: normal lung sounds bilaterally. Absent: respiratory distress, wheezes, rales, rhonchi, stridor Cardiovascular Exam: Present: regular rate, normal rhythm, normal heart sounds. Absent: systolic murmur, diastolic murmur, rubs, gallop, clicks GI/Abdominal exam: Present: soft, tenderness (Lower abdomen/pelvic region), normal bowel sounds. Absent: distended Back exam: Present: CVA tenderness (R). Absent: CVA tenderness (L) Neurological exam: Present: alert, oriented X3, CN II-XII intact Psychiatric exam: Present: normal affect, normal mood Skin exam: Present: warm, dry, intact, normal color. Absent: rash Course Vital Signs 08/22/23 08/22/23 09:06 10:40 Temperature 98.4 F Pulse Rate 74 71 Respiratory 20 18 Rate Blood Pressure 132/74 112/67 O2 Sat by Pulse 98 95 Oximetry Medical Decision Making - Medical Decision Making This is a 28-year-old female who presents to the emergency department for abdominal pain, nausea, and vomiting. Was pt. sent in by a medical professional or institution? @ -No Did you speak to anyone other than the patient for history? @ -No Did you review nursing and triage notes? @ -Yes, and I agree, it is accurate with regards to the patient's symptoms. Were old charts reviewed? @ -No Differential Diagnosis? @ -Differential Abdominal Pain Women: Appendicitis, Cholecystitis, diverticulosis, ischemic bowel, pancreatitis, hepatitis, UTI, gastroenteritis, AAA, incarcerated hernia, bowel obstruction, constipation, inflammatory bowel, hepatitis, peptic ulcer disease, splenic infarction, perforated viscus, vulvitis, ovarian torsion, PID, kidney stone, placenta abruption, this is not meant to be an all-inclusive list EKG interpreted by me (3pts min.)? @ -Not obtained X-rays interpreted by me (1pt min.)? @ -Not obtained CT interpreted by me (1pt min.)? @ -Computed tomography scan of the abdomen and pelvis obtained. My interpretation identifies no evidence of a ureteral calculus. U/S interpreted by me (1pt. min.)? @ -Not obtained What testing was considered but not performed? (CT, X-rays, U/S, labs)? Why? @ -None What meds were considered but not given? Why? @ -None Did you discuss the management of the patient with other professionals? @ -No Did you reconcile home meds? @ -No Was smoking cessation discussed for >3mins.? @ -No Was critical care preformed (if so, how long)? @ -No Were there social determinants of health that impacted care today? How? (Homele ssness, low income, unemployed, alcoholism, drug addiction, transportation, low edu. Level, literacy, decrease access to med. care, custodial, rehab)? @ -No Was there de-escalation of care discussed even if they declined? (Discuss DNR or withdrawal of care, Hospice)? @ -No What co-morbidities impacted this encounter? (DM, HTN, Smoking, COPD, CAD, Cancer, CVA, Hep., AIDS, mental health diagnosis, sleep apnea, morbid obesity)? @ -Endometriosis Was patient admitted / discharged? @ -Discharged. Lab work obtained revealing leukocytosis and no other actionable findings. This may be reactive from the persistent nausea and vomiting. Patient also has blood in her urine without evidence of infection. Given that the pain is worse than it has been with endometriosis in the past, associated back pain, and with the blood in her urine, computed tomography scan of the abdomen and pelvis was obtained to evaluate for signs of a ureteral calculus or other acute process. This revealed mild dilation of the right renal collecting system without evidence of obstructing calculus suggestive of a recently passed stone. Symptoms were well controlled with IV fluids, zofran, and toradol, and the patient felt stable for discharge home. She is advised to slowly advance her diet as tolerated and remain well-hydrated. Prescription for Toradol and Zofran provided with dosing instructions reviewed. Otherwise advised follow-up with her primary care provider. Undiagnosed new problem with uncertain prognosis? @ -None Drug Therapy requiring intensive monitoring for toxicity (Heparin, Nitro, Insulin, Cardizem)? @ -None Were any procedures done? @ -None Diagnosis/symptom? @ -Nausea/vomiting, abdominal pain Acute, or Chronic, or Acute on Chronic? @ -Acute Uncomplicated (without systemic symptoms) or Complicated (systemic symptoms)? @ -Uncomplicated Side effects of treatment? @ -None Exacerbation, Progression, or Severe Exacerbation] @ -Not applicable Poses a threat to life or bodily function? @ -No Return precautions reviewed in depth, the patient is instructed to return to the emergency department with any new, worsening, or concerning symptoms. Patient verbalized understanding. This case was discussed in detail with the attending ED physician, Dr. Antonio. Presentation, findings, and treatment plan discussed in detail as well. - Lab Data Result diagrams: 08/22/23 09:35 08/22/23 09:35 Lab Results 08/22/23 08/22/23 08/22/23 Range/Units 09:35 09:35 09:35 WBC 19.8 H (3.8-10.6) k/uL RBC 4.31 (3.80-5.40) m/uL Hgb 13.6 (11.4-16.0) gm/dL Hct 39.9 (34.0-46.0) % MCV 92.6 (80.0-100.0) fL MCH 31.6 (25.0-35.0) pg MCHC 34.2 (31.0-37.0) g/dL RDW 12.7 (11.5-15.5) % Plt Count 259 (150-450) k/uL MPV 7.6 Neutrophils % 81 % Lymphocytes % 12 % Monocytes % 4 % Eosinophils % 2 % Basophils % 0 % Neutrophils # 16.1 H (1.3-7.7) k/uL Lymphocytes # 2.4 (1.0-4.8) k/uL Monocytes # 0.7 (0-1.0) k/uL Eosinophils # 0.3 (0-0.7) k/uL Basophils # 0.1 (0-0.2) k/uL Sodium (137-145) mmol/L Potassium (3.5-5.1) mmol/L Chloride (98-107) mmol/L Carbon Dioxide (22-30) mmol/L Anion Gap mmol/L BUN (7-17) mg/dL Creatinine (0.52-1.04) mg/dL Est GFR (CKD-EPI)AfAm (>60 ml/min/1.73 sqM) Est GFR (CKD-EPI)NonAf (>60 ml/min/1.73 sqM) Glucose (74-99) mg/dL Plasma Lactic Acid Jose (0.7-2.0) mmol/L Calcium (8.4-10.2) mg/dL Total Bilirubin (0.2-1.3) mg/dL AST (14-36) U/L ALT (4-34) U/L Alkaline Phosphatase (38-126) U/L Total Protein (6.3-8.2) g/dL Albumin (3.5-5.0) g/dL Urine Color Yellow Urine Appearance Cloudy H (Clear) Urine pH 5.5 (5.0-8.0) Ur Specific [place] 1.022 (1.001-1.035) Urine Protein Trace H (Negative) Urine Glucose (UA) Negative (Negative) Urine Ketones Trace H (Negative) Urine Blood Moderate H (Negative) Urine Nitrite Negative (Negative) Urine Bilirubin Negative (Negative) Urine Urobilinogen <2.0 (<2.0) mg/dL Ur Leukocyte Esterase Small H (Negative) Urine RBC 12 H (0-5) /hpf Urine WBC 3 (0-5) /hpf Ur Squamous Epith Cells 10 H (0-4) /hpf Hyaline Casts 1 (0-2) /lpf Urine Mucus Many H (None) /hpf Urine HCG, Qual Not Detected (Not Detectd) 08/22/23 08/22/23 Range/Units 09:35 09:35 WBC (3.8-10.6) k/uL RBC (3.80-5.40) m/uL Hgb (11.4-16.0) gm/dL Hct (34.0-46.0) % MCV (80.0-100.0) fL MCH (25.0-35.0) pg MCHC (31.0-37.0) g/dL RDW (11.5-15.5) % Plt Count (150-450) k/uL MPV Neutrophils % % Lymphocytes % % Monocytes % % Eosinophils % % Basophils % % Neutrophils # (1.3-7.7) k/uL Lymphocytes # (1.0-4.8) k/uL Monocytes # (0-1.0) k/uL Eosinophils # (0-0.7) k/uL Basophils # (0-0.2) k/uL Sodium 138 (137-145) mmol/L Potassium 3.9 (3.5-5.1) mmol/L Chloride 104 (98-107) mmol/L Carbon Dioxide 21 L (22-30) mmol/L Anion Gap 13 mmol/L BUN 8 (7-17) mg/dL Creatinine 0.55 (0.52-1.04) mg/dL Est GFR (CKD-EPI)AfAm >90 (>60 ml/min/1.73 sqM) Est GFR (CKD-EPI)NonAf >90 (>60 ml/min/1.73 sqM) Glucose 104 H (74-99) mg/dL Plasma Lactic Acid Jose 0.9 (0.7-2.0) mmol/L Calcium 9.4 (8.4-10.2) mg/dL Total Bilirubin 0.6 (0.2-1.3) mg/dL AST 19 (14-36) U/L ALT 17 (4-34) U/L Alkaline Phosphatase 57 (38-126) U/L Total Protein 7.8 (6.3-8.2) g/dL Albumin 4.3 (3.5-5.0) g/dL Urine Color Urine Appearance (Clear) Urine pH (5.0-8.0) Ur Specific [place] (1.001-1.035) Urine Protein (Negative) Urine Glucose (UA) (Negative) Urine Ketones (Negative) Urine Blood (Negative) Urine Nitrite (Negative) Urine Bilirubin (Negative) Urine Urobilinogen (<2.0) mg/dL Ur Leukocyte Esterase (Negative) Urine RBC (0-5) /hpf Urine WBC (0-5) /hpf Ur Squamous Epith Cells (0-4) /hpf Hyaline Casts (0-2) /lpf Urine Mucus (None) /hpf Urine HCG, Qual (Not Detectd) - Radiology Data Radiology results: report reviewed, image reviewed Disposition Clinical Impression: Nausea and vomiting, Abdominal pain Disposition: HOME SELF-CARE Instructions (If sedation given, give patient instructions): Acute Nausea and Vomiting (ED), Abdominal Pain (ED) Additional Instructions: Return to the emergency department with any new, worsening, or concerning symptoms. Take the Toradol with Tylenol as needed for pain relief. If you choose to take the Toradol, do not take any other anti-inflammatories such as ibuprofen, take one or the other. You can take the Zofran up to every 8 hours as needed for nausea and vomiting. Slowly advance your diet as tolerated and remain well-hydrated. Follow up with your primary care provider in 1-2 days. Prescriptions: Ketorolac [Toradol] 10 mg PO Q6HR PRN #15 tab PRN Reason: Pain Ondansetron Odt [Zofran Odt] 4 mg PO Q8HR PRN #20 tab PRN Reason: Nausea And Vomiting Is patient prescribed a controlled substance at d/c from ED?: No Referrals: Yenni Ferguson MD [Primary Care Provider] - 1-2 days
[2023-08-22 09:58] LABS: Basophils # (A) 0.1 k/uL (0-0.2); Basophils % (A) 0 %; Eosinophils # (A) 0.3 k/uL (0-0.7); Eosinophils % (A) 2 %; HCT 39.9 % (34.0-46.0); HGB 13.6 gm/dL (11.4-16.0); Lymphocytes # (A) 2.4 k/uL (1.0-4.8); Lymphocytes % (A) 12 %; MCH 31.6 pg (25.0-35.0); MCHC 34.2 g/dL (31.0-37.0); MCV 92.6 fL (80.0-100.0); Mean Platelet Volume 7.6; Monocytes # (A) 0.7 k/uL (0-1.0); Monocytes % (A) 4 %; Neutrophils # (A) 16.1 k/uL (1.3-7.7); Neutrophils % (A) 81 %; Platelet Count 259 k/uL (150-450); RBC 4.31 m/uL (3.80-5.40); RDW 12.7 % (11.5-15.5); WBC 19.8 k/uL (3.8-10.6)
[2023-08-22 10:19] LABS: Appearance,Urine Cloudy (Clear); Bilirubin,Urine Negative (Negative); Blood,Urine Moderate (Negative); Color,Urine Yellow; Glucose,Urine (UA) Negative (Negative); Hyaline Casts,Urine 1 /lpf (0-2); Ketones,Urine Trace (Negative); Leukocyte Esterase,Urine Small (Negative); Mucus,Urine Many /hpf; Nitrite,Urine Negative (Negative); PH, Urine 5.5 (5.0-8.0); Protein,Urine Trace (Negative); RBC,Urine 12 /hpf (0-5); Specific Gravity,Urine 1.022 (1.001-1.035); Squamous Epithelial Cell,Urine 10 /hpf (0-4); Urobilinogen,Urine <2.0 mg/dL (<2.0); WBC,Urine 3 /hpf (0-5)
[2023-08-22 10:35] LABS: ALT 17 U/L (4-34); AST 19 U/L (14-36); African American GFR (CKD) >90 (>60 ml/min/1.73 sqM); Albumin 4.3 g/dL (3.5-5.0); Alkaline Phosphatase 57 U/L (38-126); Anion Gap 13 mmol/L; Blood Urea Nitrogen 8 mg/dL (7-17); Calcium 9.4 mg/dL (8.4-10.2); Carbon Dioxide 21 mmol/L (22-30); Chloride 104 mmol/L (98-107); Glucose 104 mg/dL (74-99); Non-African American GFR(CKD) >90 (>60 ml/min/1.73 sqM); Potassium 3.9 mmol/L (3.5-5.1); Sodium 138 mmol/L (137-145); Total Bilirubin 0.6 mg/dL (0.2-1.3); Total Protein 7.8 g/dL (6.3-8.2)
[2023-08-22 11:00] VITALS: BP 112/67; PULSE 71; RESP 18
--- NOTE | 2023-08-22 11:05 | CT ---
EXAMINATION TYPE: CT abdomen pelvis wo con CT DLP: 520.6 mGycm, Automated exposure control for dose reduction was used. DATE OF EXAM: 08/22/2023 10:58 AM COMPARISON: Ultrasound 05/28/2023. CLINICAL INDICATION:Female, 28 years old with history of Right flank pain, hematuria; Right flank amanda n, hematuria TECHNIQUE: Axial CT abdomen pelvis wo con;Sagittal and coronal reformats were created on a separate workstation. Contrast used: mL of , (none if empty) Oral contrast used: without Oral Contrast (none if empty) FINDINGS: LOWER CHEST: Unremarkable ABDOMEN LIVER: Unremarkable GALLBLADDER AND BILE DUCTS: Unremarkable. PANCREAS: Unremarkable. SPLEEN: Unremarkable. ADRENAL GLANDS: Unremarkable. KIDNEYS AND URETERS: Mild dilation of the right collecting system without evidence for obstructing fo cus. No left renal calculus or hydronephrosis. PELVIS BLADDER: Unremarkable REPRODUCTIVE: Unremarkable. ABDOMEN & PELVIS STOMACH AND BOWEL: No evidence of bowel obstruction. The appendix is normal. PERITONEUM/RETROPERITONEUM: No evidence of pneumoperitoneum or free fluid. VASCULATURE: No evidence of aortic aneurysm. MUSCULOSKELETAL: No acute osseous abnormalities LYMPH NODES: No gross evidence for lymphadenopathy. SOFT TISSUE/ABDOMINAL WALL: Unremarkable IMPRESSION: 1. Mild dilation of the right collecting system without evidence for obstructing calculus. Correlate for recently passed stone. 2. The appendix is normal.
[2023-08-22] MEDS ORDERED: ONDANSETRON 4 MG ODT STARTER PACK 2 TAB BTL PO STA (11:11)
[2023-08-22] MEDS ORDERED: IBUPROFEN 600 MG STARTER PACK 4 TAB BTL PO STA (11:11)
[2023-08-22] MEDS: ACET/COD 300 MG/30 MG STARTER PACK 6 TAB BTL PO STA ×2 (11:18→11:27)
== END 2023-08-22 11:29 | disposition home or self-care (01) ==
LOC: EC 09:04
DX: R11.2 Nausea with vomiting, unspecified (principal); R10.30 Lower abdominal pain, unspecified; F17.290 Nicotine dependence, other tobacco product, uncomplicated; F12.90 Cannabis use, unspecified, uncomplicated
CPT/HCPCS: 36415; 80053; 83605; 85025; 81001; 81025; 87086; 74176; 99284; 96374; 96375; 96361; J2405; J1885; S0119

== ENCOUNTER → 2023-10-06 | Outpatient (CLI) | payer OTHER ==
[2023-10-06 18:09] LABS: Gliadin AB IgA, Deaminated Negative (Negative); Gliadin AB IgA, Unit 1.3 U/mL; Gliadin AB IgG, Deaminated Negative (Negative); Gliadin AB IgG, Unit <0.4 U/mL
== END | disposition home or self-care (01) ==
LOC: LABWHC1 11:49
PROVIDERS: ATTEND Nurse Practitioner Family
DX: R11.0 Nausea (principal)
CPT/HCPCS: 36415; 83516